=== PATIENT | male | born 1935 | race Caucasian/White ===

== ENCOUNTER → 2020-04-15 | Outpatient (CLI) | payer MEDICARE ==
[~2020-04-15] MED LIST: DOCU100 PO; FEXPSEER PO; FLONASE ALLERG9.9 ML NS; FLUT.05NI; IRON325 MG PO; LEVSOD75 PO; MELO7.5 PO; OXYACE5T PO; SYNTHROID50 MC1 PO; TOPROL XL50 M1 PO; WARF4 PO; XARELTO20 MG PO
[2020-04-15 14:40] LABS: BASOPHILS ABSOLUTE AUTO 0.04 K/mm3 (0.00-0.23); BASOPHILS PERCENT AUTO 1 % (0-2); EOSINOPHILS ABSOLUTE AUTO 0.22 K/mm3 (0.00-0.68); EOSINOPHILS PERCENT AUTO 3 % (0-6); Hematocrit 47.3 % (37.0-53.0); Hemoglobin 15.6 g/dL (13.5-17.5); IMMATURE GRAN ABSOLUTE AUTO 0.02 K/mm3 (0.00-0.10); IMMATURE GRAN PERCENT AUTO 0 % (0-1); LYMPHOCYTES ABSOLUTE AUTO 1.49 K/mm3 (0.84-5.20); LYMPHOCYTES PERCENT AUTO 19 % (21-46); MONOCYTES ABSOLUTE AUTO 0.59 K/mm3 (0.16-1.47); MONOCYTES PERCENT AUTO 7 % (4-13); Mean Corpuscular HGB 33.2 pg (26.0-34.0); Mean Corpuscular Volume 101 fL (80-100); Mean Platelet Volume 11.2 fL (9.1-12.4); NEUTROPHILS ABSOLUTE AUTO 5.69 K/mm3 (1.96-9.15); NEUTROPHILS PERCENT AUTO 71 % (41-73); Platelet Count 223 K/mm3 (150-400); RDW Coefficient Variation 12.5 % (11.7-14.2); RDW Standard Deviation 46.7 fL (35.1-46.3); White Blood Cell Count 8.05 K/mm3 (4.00-11.30)
[2020-04-15 14:57] LABS: Alanine Aminotransfer (ALT/SGP 32 U/L (12-78); Albumin, Blood 4.1 g/dL (3.4-5.0); Albumin/Globulin Ratio 1.1 (0.8-1.8); Alk Phos 115 U/L (50-136); Anion Gap 6 mmol/L (6-16); Aspartate Aminotrans (AST/SGOT 24 U/L (12-37); Bilirubin, Total 0.4 mg/dL (0.1-1.0); Blood Urea Nitrogen 15 mg/dL (8-24); Bun/Creatinine Ratio 14.4 (12.0-20.0); CO2, Blood 28 mmol/L (21-32); Calcium, Blood 9.2 mg/dL (8.5-10.1); Chloride, Blood 107 mmol/L (98-108); Creatinine, Blood 1.04 mg/dL (0.60-1.20); Globulin, Blood 3.8 g/dL (2.2-4.0); Glomerular Filtration Rate >60 (60-); Glucose, Blood 96 mg/dL (70-99); Sodium, Blood 141 mmol/L (136-145); Total Protein, Blood 7.9 g/dL (6.4-8.2)
== END | disposition home or self-care (01) ==
LOC: LAB SHORT 13:45 → LAB 13:45
PROVIDERS: Emergency Medicine
DX: R53.1 Weakness (principal); R53.83 Other fatigue; R06.02 Shortness of breath
CPT/HCPCS: 80053; 85025

== ENCOUNTER 2020-04-17 11:40 | Inpatient (IN) | payer MEDICARE ==
[~2020-04-17] VITALS: Ht 177.8 cm; Wt 80.6 kg
[~2020-04-17 11:40] MED LIST changes: -FLUT.05NI; -SYNTHROID50 MC1 PO; -TOPROL XL50 M1 PO; -XARELTO20 MG PO
[2020-04-17] MEDS ORDERED: TOPROL XL50 M1 PO (12:19)
[2020-04-17] MEDS ORDERED: SYNTHROID50 MC1 PO (12:20)
[2020-04-17 12:30] LABS: BASOPHILS ABSOLUTE AUTO 0.04 K/mm3 (0.00-0.23); BASOPHILS PERCENT AUTO 1 % (0-2); EOSINOPHILS ABSOLUTE AUTO 0.18 K/mm3 (0.00-0.68); EOSINOPHILS PERCENT AUTO 2 % (0-6); Hematocrit 44.7 % (37.0-53.0); Hemoglobin 15.3 g/dL (13.5-17.5); IMMATURE GRAN ABSOLUTE AUTO 0.02 K/mm3 (0.00-0.10); IMMATURE GRAN PERCENT AUTO 0 % (0-1); LYMPHOCYTES ABSOLUTE AUTO 1.57 K/mm3 (0.84-5.20); LYMPHOCYTES PERCENT AUTO 20 % (21-46); MONOCYTES ABSOLUTE AUTO 0.62 K/mm3 (0.16-1.47); MONOCYTES PERCENT AUTO 8 % (4-13); Mean Corpuscular HGB 34.2 pg (26.0-34.0); Mean Corpuscular HGB Conc 34.2 g/dL (31.5-36.5); Mean Corpuscular Volume 100 fL (80-100); Mean Platelet Volume 10.4 fL (9.1-12.4); NEUTROPHILS PERCENT AUTO 70 % (41-73); Platelet Count 210 K/mm3 (150-400); RDW Coefficient Variation 12.5 % (11.7-14.2); RDW Standard Deviation 46.5 fL (35.1-46.3); Red Blood Cell Count 4.47 M/mm3 (4.30-5.90); White Blood Cell Count 8.03 K/mm3 (4.00-11.30)
[2020-04-17 12:48] LABS: International Normalized Ratio 1.05; Prothrombin Time Results 11.2 Sec (9.7-11.5)
[2020-04-17 13:04] LABS: Alanine Aminotransfer (ALT/SGP 38 U/L (12-78); Albumin, Blood 3.8 g/dL (3.4-5.0); Alk Phos 111 U/L (50-136); Anion Gap 6 mmol/L (6-16); Aspartate Aminotrans (AST/SGOT 31 U/L (12-37); Bilirubin, Total 0.5 mg/dL (0.1-1.0); Blood Urea Nitrogen 19 mg/dL (8-24); Bun/Creatinine Ratio 16.7 (12.0-20.0); CO2, Blood 26 mmol/L (21-32); Calcium, Blood 8.7 mg/dL (8.5-10.1); Chloride, Blood 108 mmol/L (98-108); Creatinine, Blood 1.14 mg/dL (0.60-1.20); Globulin, Blood 3.7 g/dL (2.2-4.0); Glomerular Filtration Rate >60 (60-); Glucose, Blood 106 mg/dL (70-99); Potassium, Blood 4.6 mmol/L (3.5-5.5); Sodium, Blood 140 mmol/L (136-145); Total Protein, Blood 7.5 g/dL (6.4-8.2); Troponin I 0.054 ng/mL (0.000-0.040)
--- NOTE | 2020-04-17 15:04 | NUR ---
Echocardiogram completed.
[2020-04-17 15:24] LABS: Creatine Kinase MB 1.6 ng/mL (0.0-3.6); Creatine Kinase MB Index 1.5 (0.0-4.0)
--- NOTE | 2020-04-17 16:00 | NUR ---
ADMIT NOTE- RECIEVED TELEPHONE REPORT FROM ED RN. PT HAD A CT TO R/O PE AWAITING THE RESULTS NOW. PT JUST ARRIVED DYSPNEA NOTED WITH TRANSFERS PER REPORT. PT TRANSFERED TO BED PRIOR TO RN GETTING TO THE BEDSIDE. DAUGHTER IS A BETTER HISTORIAN AND IS AT THE BEDSIDE. RECIEVED A CALL FROM PHARMACY FOR ACCURATE WEIGHT FOR HEPARIN DOSE FOR DRIP. CALLED THEM BACK WITH CURRENT WEIGHT. AWAITING THE ARRIVAL OF THE HEPARIN, WILL START WHEN IT ARRIVES.
--- NOTE | 2020-04-17 16:30 | NUR ---
DR PARKS AT THE BEDSIDE- PER DR PARKS THE PT ECHO WAS NOT NORMAL AND HE NEEDS TO TAKE HIM TO THE FURNACE COMBUSTION ANALYST. PER HE WANTS THE PT TRANSFERED TO ICU NOW, (AFTER THE ULTRASOUND OF THE PT LEGS TO R/O DVT IS COMPLETED). PT TO TRANSFER PRIOR TO GOING TO THE FURNACE COMBUSTION ANALYST TO THE ICU. MARIA TO BE PLACED ONCE PT IS IN ICU. PT IS NOT TO GET UP OUT OF BED, PT SHOULD NOT MOVE. CALLED NURSING RELATIONS SPECIALIST AND REQUESTED A BED IN ICU FOR THIS PT. AWAITING A BED ASSIGNAMENT.
--- NOTE | 2020-04-17 17:15 | NUR ---
SPOKE TO WEB SITE DESIGNER OK TO GIVE BEDSIDE REPORT. WILL START THE HEPARIN DRIP AND GIVE THE BOLUS PRIOR TO PT TRANSFER TO ICU.
--- NOTE | 2020-04-17 17:45 | NUR ---
PT TRANSFERED TO ICU 11- BEDSIDE REPORT GIVEN TO EXTRACTOR PLANT OPERATOR. PT DAUGHTER OUTSIDE THE ICU WAITING. ADMIT COMPLETED IN THE COMPUTER. LUNG SOUNDS CLEAR T/O. NO SOB NOTED WHILE AT REST ON 1L O2 VIA NC. PRELIMINARY REPORT FROM VENOUS ULTRASOUND SHOWED A DVT IN THE RIGHT CALF. PEDAL PULSES PALPABLE; SATS MAINTAINING AT THIS TIME NO S&S OF DISTRESS NOTED. TELE BOX TAKEN ACK TO TELEMETRY AFTER THE TRANSFER.
[2020-04-17 18:26] LABS: Source, Urine Catheter
--- NOTE | 2020-04-17 18:42 | NUR ---
1745 PT TRANSFERED VIA BED TO ICU-11 AND MOVED OVER TO BED PER NURSES. PT DENIES SOB CURRENTLY AND IS ON 1L NC WITH VS NOTED AND STABLE. PT IS VERY A/O. VS NOTED AND PT QUITE HTN CURRENTLY NOTED. PT DISTAL PEDAL AND P.T. PULSES FAINT BUT PRESENT AND FEET BIALT. ARE COOL. PT IS NSR, AND GOOD SATS ON 1L. DAUGHTER IS IN ROOM AND BOTH HER AND PT ARE AWARE OF RECOMMENDATIONS FROM DR PARKS FOR THIS PM. PT IS CURRENTLY ON HEPARIN GTT AT 15 UNITS/KG AT 24.3 ML.
[2020-04-17 18:45] LABS: Appearance, Urine Clear (Clear); Bilirubin, Urine Neg (Neg); Blood, Urine 1+ (Neg); Color, Urine Amber (P-Yellow); Glucose Qualitative, Urine Neg (Neg); Ketones, Urine 3+ (Neg); Leukocyte Esterase, Urine Neg (Neg); Nitrite, Urine Neg (Neg); Protein, Urine 2+ (Neg); Urobilinogen, Urine 1+ (Normal)
[2020-04-17 19:18] LABS: Bacteria Rare /hpf; Squamous Epithelial Cells Not Seen /hpf (Few); Uric Acid Crystals Few /hpf; White Blood Cells, Urine 0-2 /hpf (0-5)
--- NOTE | 2020-04-17 19:21 | NUR ---
ASSUMED CARE: PT A&O. IN SR. DENIES SOB. ON 1LNC. MARIA IN PLACE. 2 PIV-LAC, RFA. ON HEPARIN-15U. CHILD CARE COORDINATOR CAME AND PICKED PT UP FOR CHILD CARE COORDINATOR PROCEDURE.
--- NOTE | 2020-04-17 22:02 | NUR ---
PT BACK FROM COLLECTIVE BARGAINING SPECIALIST AROUND 2044. PT BACK WITH TWO 6FR SHEATHS- F REM VENOUS ACCESS. EKOS RUNNING WITH NS, TPA, HEPARIN. GROIN ACCESS SITE IS SOFT AND NONTENDER. EKOS BRIEFLY TURNED OFF TO CHECK FOR PEDAL PULSES AND THEN TURNED BACK ON. DRESSING IS C/D/I. INFORMED FROM CRYSTAL COLLECTIVE BARGAINING SPECIALIST NURSE, PT ARRIVED TO COLLECTIVE BARGAINING SPECIALIST WITH C/O OF THE WORST HEADACHE HES EVER HAD AND HE HAS NO HX OF MIGRAINES. ONCE BACK TO ICU, ASSESSED PTS HEADACHE. HE STATED IT WAS RIGHT BEHIND L EYE. 10/10 PAIN. PERRLA. PUPILS ARE 5 MM BILAT. PT THEN VOMITED ABOUT 250MLS. CALL PLACED TO DR PARKS RE PT VOMITING AND VERY PAINFUL HAMM. ORDERS RECEIVED FOR ZOFRAN 4MG IV-MAY REPEAT X 3. FENTANYL 25-100MCG IV Q1PRN. STAT NON-CONTRAST HEAD CT. PT TRANSPORTED TO CT VIA PATIENT SITTERGIOVANNI OZUNA RN AND MYSELF. ZOFRAN GIVEN PRIOR TO TRANSPORT ALTHOUGH PT HAD STATED THE N&V HAD RESOLVED. DURING TRANSPORT PT C/O THAT HAMM AND NAUSEA WAS RETURNING. COLD COMPRESS GIVEN FOR HEAD. ONCE BACK TO ICU ASKED PT IF HE WOULD LIKE PAIN MEDS, HE DECLINED PAIN MEDS AT THIS TIME. CALL LIGHT GIVEN AND PT ENCOURAGED TO USE IF HE NEEDED ANYTHING. BED IN LOWEST POSITION. LIGHTS DIMMED FOR COMFORT. *ATP IS INFUSING 1MG/HR X 4 HRS. THEN WILL INFUSE AT 0.5MG/HR. HEPARIN INFUSING AT 6 MLS/HR. RUNNING THROUGH EKOS IN R FEM
[2020-04-18 03:23] LABS: Hematocrit 41.7 % (37.0-53.0); Hemoglobin 13.8 g/dL (13.5-17.5); Mean Corpuscular HGB Conc 33.1 g/dL (31.5-36.5); Mean Corpuscular Volume 100 fL (80-100); Mean Platelet Volume 10.2 fL (9.1-12.4); Platelet Count 181 K/mm3 (150-400); RDW Coefficient Variation 12.4 % (11.7-14.2); RDW Standard Deviation 45.2 fL (35.1-46.3); Red Blood Cell Count 4.18 M/mm3 (4.30-5.90); White Blood Cell Count 9.94 K/mm3 (4.00-11.30)
[2020-04-18 03:41] LABS: Anion Gap 8 mmol/L (6-16); Blood Urea Nitrogen 19 mg/dL (8-24); Bun/Creatinine Ratio 20.8 (12.0-20.0); CO2, Blood 24 mmol/L (21-32); Calcium, Blood 8.2 mg/dL (8.5-10.1); Chloride, Blood 112 mmol/L (98-108); Creatinine, Blood 0.91 mg/dL (0.60-1.20); Glomerular Filtration Rate >60 (60-); Glucose, Blood 131 mg/dL (70-99); Potassium, Blood 4.5 mmol/L (3.5-5.5); Sodium, Blood 144 mmol/L (136-145)
--- NOTE | 2020-04-18 04:00 | NUR ---
PT C/O PERSISTENT HEADACHE. MODERATE RELIEF WITH FENTANYL IV. PERRLA-4MM. EQUAL STRENGTH BILATERALLY. NO FACIAL DROOPING. SPEECH IS UNCHANGED AND REMAINS CLEAR- SOMEWHAT SLOW TO RESPOND BUT PT IS ALSO [place]. REFUSING MOST REPOSITIONING. WILL CONINTUE TO MONITOR
--- NOTE | 2020-04-18 05:32 | NUR ---
PT HEAD PAIN IS MORE UNDER CONTROL AFTER SEVERAL DOSES OF 100MCG IV FENTANYL. PT REPORTS PAIN LEVEL IS CURRENTLY A 2-3/10. PT GIVEN SLEEP MASK. LIGHTS REMAIN DIM. OFFERED REPOSITIONING. PT DECLINED. R GROIN ACCESS SITE UNCHANGED.. D PEDAL PULSES PRESENT.
--- NOTE | 2020-04-18 05:49 | NUR ---
SHIFT SUMMARY: NO ACUTE CHANGES SINCE LAST NOTE. VSS. HEADACHE, NAUSEA RESOLVING. GROIN SITE UNCHANGED FROM LAST ASSESSMENT. WILL PASS REPORT TO ONCOMING RN
--- NOTE | 2020-04-18 09:00 | NUR ---
PT RESTING IN BED. LAYING FLAT WITHOUT FLEXION OF GROIN OR NECK. PT HAS EKOS WITH 2 VENOUS SHEATHS TO THE R GROIN. TPA, HEPARIN, AND NS RUNNING PER ORDERS. PT C/O HAMM AND GETS "WOOZY" WITH ANY SUDDEN MOVEMENT. PT DECLINED NAUSEA MEDS BUT REQUESTED PAIN MEDS FOR HAMM. PUPILS ARE EQUAL AND REACTIVE. NO NEURO CHANGES. FEET ARE COOL TO TOUCH BUT PALPABLE PEDAL PULSES BILAT. NO SIGN OF DISTRESS. CALL LIGHT IN REACH. LIGHTS LOW AND ROOM QUIET TO HELP WITH HAMM.
--- NOTE | 2020-04-18 12:30 | NUR ---
DR. PARKS IN TO SEE PT. HE WANTS THE TPA AND HEPARIN TO RUN FOR A COUPLE MORE HOURS THEN HE WILL BE BACK IN TO PULL THE SHEATH AND EKOS OUT. PT AND DAUGHTER UPDATED ON PLAN OF CARE. PT OK'D TO EAT AND DRINK. GAVE PT A PIECE OF BREAD AND ICE WATER PER HIS REQUEST. DR. PARKS IS ALSO OK WITH PT SITTING UP SLIGHTLY WITH EKOS IN PLACE.
--- NOTE | 2020-04-18 14:35 | NUR ---
DR. PARKS AT BEDSIDE, REMOVED EKOS VENOUS SHEATHS AND APPLIED MANUAL PRESSURE. NO SIGN OF BLEEDING. PT IS FEELING BETTER THIS AFTERNOON. SITTING UP WATCHING TV NOW.
--- NOTE | 2020-04-18 15:57 | NUR ---
Patient is lying in bed and alert. Patient tells me about the events that led to his hospitalization and the discoveries made and treatments given since his arrival. Patient tells me about his family, his careers and his Alis. I provide therapeutic listening, spiritual guidance and prayer. Patient responds well and shows signs of restored alis and improved hope. I will continue to remain available to patient and family.
--- NOTE | 2020-04-18 18:43 | NUR ---
SUMMARY PT DOING WELL TONIGHT. A/O X4. NO NAUSEA AND HAMM HAS IMPROVED. ABLE TO TOLERATE DINNER. EKOS AND VENOUS SHEATHS REMOVED BY DR. APRKS THIS AFTERNOON. NO SIGNS OF BLEEDING FROM SITE. ON HEPARIN GTT PER PHARMACY FOR ANTICOAG. PT STATES BREATHING HAS IMPROVED. NO SIGN OF DISTRESS. PCU STATUS NOW. CALL LIGHT IN REACH.
--- NOTE | 2020-04-18 20:00 | NUR ---
ASSUMED CARE: PT DOING WELL AND IN GOOD SPIRITS. R VENOUS SHEATHS PULLED DURING DAYSHIFT. SLIGHT BRUISING. NO S/S OF BLEEDING, NO HEMATOMA. AREA IS SOFT AND NONTENDER. PEDAL PULSES PRESENT. R FOOT IN WARM AND PINK. PT HAS NO COMPLAINTS OF HEADACHE OR NAUSEA THIS EVENING. VSS. HEPARIN INFUSING AT 15U. DOSING WT IS 81KG. 2 PIV PRESENT. WILL CONTINUE TO [facility]
--- NOTE | 2020-04-19 00:32 | NUR ---
RFA IV HAD INCREASING REDNESS AROUND INSERTION SITE. HEPARIN LINE SWITCHED TO LAC IV. CATH INTACT.
--- NOTE | 2020-04-19 05:40 | NUR ---
NO ACUTE CHANGES T/O SHIFT. VSS. PT DID COMPLAIN OF A HAMM THIS AM. FENTANYL GIVEN.
--- NOTE | 2020-04-19 06:39 | NUR ---
WENT IN RM AND NOTICED IV LEAKING. GIOVANNI RN REDRESSED AND SECURED THE HUB. GOWN CHANGED. PT STILL C/O HEADACHE. TYLENOL GIVEN. R GROIN ACCESS SITE UNCHANGED FROM PREVIOUS ASSESSMENT. HEPARIN INFUSING AT 16U. DOSING WT 81KG. PT HAS ONLY ONE IV IN THE LAC
--- NOTE | 2020-04-19 07:47 | NUR ---
CARE ASSUMED CARE AND REPORT ASSUMED FROM MARIA D WEEMS. PT SITTING UPRIGHT IN BED. REPORTS HEAD PAIN HAS IMPROVED TO 1/10 AFTER RECEIVING TYLENOL. A/O X 3, CALM AND COOPERATIVE. VSS. NSR, HR 70S. BP WNL. SPO2 94% ON RA. LUNG SOUNDS CLEAR. AFEBRILE. R GROIN SITE IS CLEAN AND DRY WITH SMALL AREA OF HEMATOMA. SURROUNDING SKIN IS SOFT AND NONTENDER. HEPARIN GTT INFUSING AT 16 UNITS/HR PER ORDER. TOLERATED FLONASE NASAL SPRAY. WILL CONTINUE TO MONITOR.
--- NOTE | 2020-04-19 09:42 | NUR ---
AMBULATION PT AMBULATED WITH STANDBY ASSIST TO SHOWER. INDEPENDENTLY SHOWERED. NOW SITTING UPRIGHT IN RECLINER CHAIR. LAC PERIPHERAL IV LEAKING AND SLIPPED OUT. HEPARIN DISCONTINUED AT THIS TIME. PT TO BE GIVEN XARELTO PO. VSS. WILL CONTINUE TO MONITOR.
[2020-04-19] MEDS ORDERED: FLUT.05NI (10:42)
[2020-04-19] MEDS ORDERED: XARELTO20 MG PO ×2 (10:43)
--- NOTE | 2020-04-19 11:44 | NUR ---
DISCHARGE 1115 - PT DISCHARGED AT THIS TIME. COUNSELED PT ON DC INSTRUCTIONS, MEDICATIONS, AND FOLLOW UP APPOINTMENTS. FOLLOW UP APPOINTMENT SCHEDULED WITH DR. PARKS; PT AWARE. MEDICATIONS CALLED INTO [facility] IN [place]. XARELTO PO GIVEN PRIOR TO DISCHARGE. DAUGHTER AT BEDSIDE DURING DISCHARGE INSTRUCTIONS. PT DISPLAYS UNDERSTANDING. WHEELED OUT TO EXIT.
== END 2020-04-19 11:15 | disposition home or self-care (01) | DRG 167 ==
LOC: ER 11:40 → MEDS 11:41 → ICUW 11:41 → MEDS 11:41 → ICUW 17:26
PROVIDERS: Emergency Medicine; Nurse Practitioner Acute Care; Radiology Diagnostic Radiology; ADMIT Family Medicine
PROC: B31T1ZZ Fluoroscopy of Left Pulmonary Artery using Low Osmolar Contrast (ICD-10-PCS; principal; 2020-04-17)
PROC: 02FR3Z0 Fragmentation of Left Pulmonary Artery, Percutaneous Approach, Ultrasonic (ICD-10-PCS; 2020-04-17)
DX: I26.99 Other pulmonary embolism without acute cor pulmonale (principal); I24.8 Other forms of acute ischemic heart disease; Z87.891 Personal history of nicotine dependence; E03.9 Hypothyroidism, unspecified; I10 Essential (primary) hypertension; Z96.641 Presence of right artificial hip joint
CPT/HCPCS: 36015; 36415; 37211; 51702; 51703; 70450; 71046; 71260; 75743; 75825; 76937; 80048; 80053; 81001; 82550; 82553; 83880; 84484; 85025; 85027; 85384; 85610; 85730; 93005; 93010; 93306; 93970; 96374; 96375; 96376; 99152; 99153; 99285-25; A9270; A9270-GY; C1757; C1769; C1894; G0008; G0378; J1644; J2250; J2405; J3010; J7030; Q9967

== ENCOUNTER 2020-09-19 00:42 | Day surgery (SDC) | payer MEDICARE ==
[~2020-09-19 00:42] MED LIST changes: +FLUT.05NI; +SYNTHROID50 MC1 PO; +TOPROL XL50 M1 PO; +XARELTO20 MG PO
[2020-09-19] MEDS ORDERED: PANT20 PO (08:17)
== END 2020-09-19 11:51 | disposition home or self-care (01) ==
LOC: ATC 00:42
DX: D62 Acute posthemorrhagic anemia (principal); J44.9 Chronic obstructive pulmonary disease, unspecified; E03.9 Hypothyroidism, unspecified; N40.1 Benign prostatic hyperplasia with lower urinary tract symptoms; R35.1 Nocturia; L63.9 Alopecia areata, unspecified; Z79.01 Long term (current) use of anticoagulants
CPT/HCPCS: 36415; 36430; 86850; 86900; 86901; 86923; J7050; P9016

== ENCOUNTER → 2023-07-25 | Outpatient (CLI) | payer MEDICARE ==
[~2023-07-25] MED LIST changes: +Ferrous Sulfat325 MG PO; +PANT20 PO
[2023-07-27 14:36] LABS: Stool Occult Bld Immuno 1 Negative (NEGATIVE); Stool Occult Bld Immuno 2 Negative (NEGATIVE)
[2023-07-27 15:41] LABS: Campylobacter Sp Not Detected (NOT DETECT); Plesiomonas Shigelloides Not Detected (NOT DETECT)
[2023-07-27 15:42] LABS: Adenovirus F 40/41 Not Detected (NOT DETECT); Astrovirus Not Detected (NOT DETECT); Cryptosporidium Not Detected (NOT DETECT); Cyclospora Cayetanensis Not Detected (NOT DETECT); E. Coli O157 Not Detected (NOT DETECT); Entamoeba Histolytica Not Detected (NOT DETECT); Enteroaggregative E. coli-EAEC Not Detected (NOT DETECT); Enteropathogenic E. coli-EPEC Not Detected (NOT DETECT); Enterotoxigenic E. coli-ETEC Not Detected (NOT DETECT); Giardia Lamblia Not Detected (NOT DETECT); Norovirus GI/GII Not Detected (NOT DETECT); Rotavirus A Not Detected (NOT DETECT); Salmonella Sp Not Detected (NOT DETECT); Sapovirus Not Detected (NOT DETECT); Shiga Toxin-prod E. coli-STEC Not Detected (NOT DETECT); Shigella/Enteroin E. coli-EIEC Not Detected (NOT DETECT); Vibrio Cholerae Not Detected (NOT DETECT); Vibrio Sp Not Detected (NOT DETECT); Yersinia Enterocolitica Not Detected (NOT DETECT)
== END ==
LOC: LAB 12:00 → LAB SHORT 12:00
PROVIDERS: Nurse Practitioner
DX: D64.9 Anemia, unspecified (principal); R19.7 Diarrhea, unspecified
CPT/HCPCS: 87507; G0328

== ENCOUNTER 2023-07-27 08:43 | Emergency (ER) | payer MEDICARE ==
[~2023-07-27] VITALS: Ht 177.8 cm; Wt 78.9 kg
[~2023-07-27 08:43] MED LIST changes: -Ferrous Sulfat325 MG PO
[2023-07-27 10:24] LABS: BASOPHILS ABSOLUTE AUTO 0.03 K/mm3 (0.00-0.23); BASOPHILS PERCENT AUTO 1 % (0-2); EOSINOPHILS ABSOLUTE AUTO 0.18 K/mm3 (0.00-0.68); EOSINOPHILS PERCENT AUTO 3 % (0-6); Hematocrit 23.5 % (37.0-53.0); Hemoglobin 6.5 g/dL (13.5-17.5); IMMATURE GRAN ABSOLUTE AUTO 0.02 K/mm3 (0.00-0.10); IMMATURE GRAN PERCENT AUTO 0 % (0-1); LYMPHOCYTES ABSOLUTE AUTO 1.02 K/mm3 (0.84-5.20); LYMPHOCYTES PERCENT AUTO 18 % (21-46); MONOCYTES ABSOLUTE AUTO 0.58 K/mm3 (0.16-1.47); MONOCYTES PERCENT AUTO 10 % (4-13); Mean Corpuscular HGB 19.2 pg (26.0-34.0); Mean Corpuscular HGB Conc 27.7 g/dL (31.5-36.5); Mean Corpuscular Volume 69 fL (80-100); Mean Platelet Volume 9.8 fL (9.1-12.4); NEUTROPHILS ABSOLUTE AUTO 3.85 K/mm3 (1.96-9.15); NEUTROPHILS PERCENT AUTO 68 % (41-73); Platelet Count 358 K/mm3 (150-400); RDW Coefficient Variation 18.5 % (11.7-14.2); RDW Standard Deviation 45.4 fL (35.1-46.3); Red Blood Cell Count 3.39 M/mm3 (4.30-5.90); White Blood Cell Count 5.68 K/mm3 (4.00-11.30)
[2023-07-27 10:30] LABS: IMMATURE RETIC FRACTION 23.5 % (2.3-16.0); RETIC HGB EQUIVALENT 18.2 pg (28.20-36.60); RETICULOCYTE ABSOLUTE 0.0421 M/mm3 (0.0200-0.1100); RETICULOCYTE COUNT PERCENT 1.26 % (0.50-2.50)
[2023-07-27 10:56] LABS: Albumin, Blood 3.4 g/dL (3.4-5.0); Albumin/Globulin Ratio 0.9 (0.8-1.8); Bilirubin, Total 0.3 mg/dL (0.1-1.0); Bun/Creatinine Ratio 18.8 (12.0-20.0); Calcium, Blood 9.1 mg/dL (8.5-10.1); Creatinine, Blood 1.12 mg/dL (0.60-1.20); Globulin, Blood 3.6 g/dL (2.2-4.0); Potassium, Blood 3.5 mmol/L (3.5-5.5)
[2023-07-27] MEDS ORDERED: NS 1,000 ML IV SCH (11:45)
[2023-07-27] MEDS ORDERED: Ferrous Sulfat325 MG PO (14:43)
[2023-07-27 14:51] VITALS: BP 132/94
== END 2023-07-27 14:50 | disposition home or self-care (01) ==
LOC: ER 08:43
PROVIDERS: Emergency Medicine
DX: D50.9 Iron deficiency anemia, unspecified (principal); I10 Essential (primary) hypertension; E03.9 Hypothyroidism, unspecified; Z79.899 Other long term (current) drug therapy; Z79.890 Hormone replacement therapy
CPT/HCPCS: 36430; 80053; 82272; 85025; 85045; 86850; 86900; 86901; 86923; 99284; J7030; P9016

== ENCOUNTER 2025-05-03 11:15 | Day surgery (SDC) | payer MEDICARE ==
[~2025-05-03] VITALS: Ht 180.3 cm; Wt 79.3 kg
[~2025-05-03 11:15] MED LIST changes: +Balanced Salt Epinephrine Irrigation Solution 500 mL IR SCH; +Ferrous Sulfat325 MG PO; +Moxifloxacin HCL 0.5 MG/0.1 ML 0.4MLSYR RIGHTEYE SCH; +Ondansetron 4 MG SoluTab MM PRN; +PHENYLEPHRINE\\TROPICAMIDE\\TETRACAINE OPHTHALMIC DILATING SOLN RIGHTEYE PRN; +Povidone-Iodine 450 DROP/30 ML Solution ONE; +Povidone-Iodine 450 DROP/30 ML Solution RIGHTEYE SCH; +Tetracaine HCl/Pf 0.5% Opth Soln 4 ml ONE; +diazePAM 5 MG,diazePAM 2 MG PO SCH
--- NOTE | 2025-05-03 12:14 | NUR ---
05/03/25 1214 HELEN BARBOUR DENTURES REMOVED AND PLACED IN LABELED CUP, FULL SET
--- NOTE | 2025-05-03 12:57 | NUR ---
05/03/25 1257 Tata Medina 9625 BP:153/73 HR:69 O2:97% RESP:16
--- NOTE | 2025-05-03 13:34 | NUR ---
05/03/25 Cheli4 Raymundo Salcido [facility].ChuXP INFORMED DR DEL RIO OF HIGH BLOOD PRESSURE READINGS IN STEPDOWN. HE WAS ENCOURAGED TO MEET WITH HIS PCP MARYCARMEN REGARDING HIGH BLOOD PRESSURE.
[2025-05-03 13:40] VITALS: BP 178/78
== END 2025-05-03 13:34 | disposition home or self-care (01) ==
LOC: ORSCSDS 11:15
PROVIDERS: Student in an Organized Health Care Education/Training Program
PROC: 08RJ3JZ Replacement of Right Lens with Synthetic Substitute, Percutaneous Approach (ICD-10-PCS; principal; 2025-05-03 13:30)
DX: H25.813 Combined forms of age-related cataract, bilateral (principal); N40.0 Benign prostatic hyperplasia without lower urinary tract symptoms; K21.9 Gastro-esophageal reflux disease without esophagitis; E03.9 Hypothyroidism, unspecified; Z79.01 Long term (current) use of anticoagulants; Z79.899 Other long term (current) drug therapy; Z87.891 Personal history of nicotine dependence
CPT/HCPCS: A9270; V2632